=== PATIENT | female | born 1970 | race Caucasian/White ===

== ENCOUNTER 2018-05-03 01:37 | Outpatient (CLI) | payer OTHER, SELFPAY ==
--- NOTE | 2018-05-03 15:11 | DI.MAMMO_ITS ---
SYMPTOM/DIAGNOSIS: SCREENING, Z12.31 CORRECTED REPORT MAMMOGRAMS: Mammograms were interpreted according to the usual protocol including computer analysis with CAD system, tomosynthesis and C view imaging. Comparison is made with exams from [id number]. The breasts are composed of heterogeneously dense fibroglandular tissue, breast density, Category C. No suspicious masses or suspicious microcalcifications are seen. There has been no significant change. IMPRESSION: Category 1C, negative mammogram. Yearly screening mammography is recommended. [facility] ASSESSMENT OF FINDINGS: Negative. Category 1. Patient will receive a letter notifying them of these results. Bi-RADS category C. The breasts are heterogeneously dense, which may obscure small masses.
== END 2018-05-03 01:57 ==
PROVIDERS: Visit Provider Nurse Practitioner Family
DX: Z12.31 Encounter for screening mammogram for malignant neoplasm of breast (principal)
CPT/HCPCS: 77063; 77067

== ENCOUNTER 2019-06-24 01:11 | Outpatient (CLI) | payer OTHER, SELFPAY ==
--- NOTE | 2019-06-24 15:23 | DI.MAMMO_ITS ---
EXAM: MG MAMMO SCREENING CLINICAL HISTORY: screening. TECHNIQUE: Full field digital CC and MLO mammographic images were obtained with 3D tomosynthesis and utilizing computer aided detection (CAD). COMPARISON: [id number]. FINDINGS: Breast density: C Masses/Architectural Distortion: None seen. Microcalcifications: No suspicious pleomorphic-type calcifications are seen. Skin Thickening/Nipple Retraction: None. Axilla: Unremarkable. IMPRESSION: 1. BI-RADS category 1, negative. No significant interval change with no specific features of maligna ncy noted. 2. Unless there is more urgent need, screening mammography is recommended, as per [place] [employer] guidelines. BI-RADS Cat 1 - Negative Breast Density - Category C - Heterogeneously dense A negative radiographic report should not delay biopsy if a dominant or clinically suspicious mass is present. Up to ten percent of cancers are not identified on mammography. A negative report may reinforce clinical impression. Adenosis and dense breasts may obscure an underlying neoplasm. False positive reports average 6 to 10%. Patient will receive a letter notifying them of these results.
== END 2019-06-24 01:31 ==
PROVIDERS: Visit Provider Nurse Practitioner Family
DX: Z12.31 Encounter for screening mammogram for malignant neoplasm of breast (principal)
CPT/HCPCS: 77063; 77067

== ENCOUNTER 2020-05-17 10:55 | Outpatient (REF) | payer BC, SELFPAY ==
--- NOTE | 2020-05-17 09:15 | PAPFT_PTH ---
PATIENT: Lacie Godinez LOC: [facility] U#:[id number] AGE/SX: 49/F ROOM: RE05/17/[address]: WILLY Flores : 1970 BED: DIS: 05/17/2020 SPEC #: [id number] RECD: 05/17/20 12:46 STATUS: ANTOINE REAdrien #: [id number] TAVO: 05/17/20 09:[address]: Aria Kirk DEPT: [facility] Cytology RECD BY: Maggie Purvis Tissues: 1 - CX/ENDOCX FOR PAP SMEARS Procedures: PAP THIN PREP/UVM Screening HPV DNA PROBE Comments: [id number] ([place]COL[place])
== END 2020-05-17 11:15 ==
LOC: LBN 10:55
PROVIDERS: Visit Provider Nurse Practitioner Family
DX: Z12.4 Encounter for screening for malignant neoplasm of cervix (principal)
CPT/HCPCS: 88142; 87624

== ENCOUNTER 2020-07-22 00:56 | Outpatient (CLI) | payer BC, SELFPAY ==
--- NOTE | 2020-07-22 08:30 | DI.MAMMO_ITS ---
EXAM: MG MAMMO SCREENING CLINICAL HISTORY: screening. TECHNIQUE: Bilateral full field digital CC and MLO mammographic images were obtained with 3D tomosyn thesis and utilizing computer aided detection (CAD). COMPARISON: Prior mammograms dating back to 2010, the most recent being June 2019. FINDINGS: There are no new obvious spiculated masses nor malignant appearing microcalcification groups. There is no significant architectural distortion nor skin thickening-retraction. IMPRESSION: Dense bilateral fibroglandular tissue. No obvious radiographic evidence of malignancy. BI-RADS Category 1 - Negative Breast Density - Category C - Heterogeneously dense Breast density Category C or D implies that the patient has dense breast tissue. Dense breast tissue can make it harder to find cancer on a mammogram. Dense breast tissue is also associated with an incr eased risk of breast cancer. This information about the result of the mammogram report was provided to the patient to raise their awareness. Use this report when you speak with the patient about their risks for breast cancer, which includes their family history. At that time, you may recommend additional screening tests (Ultrasoun d or MRI) as these tests may add significant information. A negative radiographic report should not delay biopsy if a dominant or clinically suspicious mass is present. Up to ten percent of cancers are not identified on mammography. A negative report may reinforce clinical impression. Adenosis and dense breasts may obscure an underlying neoplasm. False positive reports average 6 to 10%. Patient will receive a letter notifying them of these results.
== END 2020-07-22 01:16 ==
PROVIDERS: PCP Family Medicine; Visit Provider Nurse Practitioner Family
DX: Z12.31 Encounter for screening mammogram for malignant neoplasm of breast (principal)
CPT/HCPCS: 77063; 77067

== ENCOUNTER 2021-07-26 01:08 | Outpatient (CLI) | payer OTHER, SELFPAY ==
--- NOTE | 2021-07-26 07:30 | DI.MAMMO_ITS ---
Exam(s) MAMMO SCREENING EXAM: MAMMO SCREENING CLINICAL HISTORY: screening TECHNIQUE: Mammograms were interpreted according to the usual protocol including computer analysis w [facility] CAD system, tomosynthesis and C-view imaging. COMPARISON: FINDINGS: The breasts are heterogeneously dense. No dominant mass is seen. There is a new grouping of poorly visualized microcalcifications in the upper outer quadrant of the r ight breast approximately 7 cm from the nipple seen on CC and MLO views. These appear to be associat ed with a new area of asymmetric density and there is possible architectural distortion in this area. These findings were not present on prior examinations including July 2020. No other significant change seen. IMPRESSION: Suspicious findings of new asymmetric density, microcalcifications, and possible architectural distor tion of upper outer quadrant of the right breast. Additional evaluation with magnification spot comp ression views and breast ultrasound recommended to evaluate the possibility of malignancy. BI-RADS Category 0 - Assessment Incomplete: Need additional imaging evaluation Breast Density - Category C - Heterogeneously dense
== END 2021-07-26 01:28 ==
PROVIDERS: PCP Family Medicine; Visit Provider Nurse Practitioner Family
DX: Z12.31 Encounter for screening mammogram for malignant neoplasm of breast (principal); R92.8 Other abnormal and inconclusive findings on diagnostic imaging of breast
CPT/HCPCS: 77063; 77067

== ENCOUNTER 2021-07-29 01:57 | Outpatient (CLI) | payer OTHER, SELFPAY ==
--- NOTE | 2021-07-29 | DI.US_ITS ---
Exam(s) MG MAMMO SCREEN CALL BACK UNI US BREAST RT COMPLETE EXAM: MG MAMMO SCREEN CALL BACK UNI - RIGHT AND COMPLETE RIGHT BREAST ULTRASOUND CLINICAL HISTORY: F/U MAMMO, ? NEW ASYMMETRIC DENSITY,NEW MICROCALCIFICATIONS,? ARCHITECTURAL. TECHNIQUE: Unilateral spot mammographic images obtained with BOTH 2D AND 3D tomosynthesisand jaeizi ng computer aided detection (CAD). . Complete RIGHT breast Ultrasound was also performed, including all 4 quadrants, the retroareolar santiago on, and the ipsilateral axilla. COMPARISON: Prior mammograms were reviewed. This additional imaging was performed due to findings described on the recent screening mammogram of 07/26/2021. FINDINGS: DIAGNOSTIC RIGHT BREAST MAMMOGRAM: Additional mammographic views performed todayreveals the microcalcifications to be suspicious and the re is suggestion associated mass on the spot 3D view. We then proceeded with ultrasound. COMPLETE RIGHT BREAST ULTRASOUND: Ultrasound performed today reveals a concerning irregular hypoechoic mass at the 9-10 o'clock positio n, approximately 5 cm from the nipple and corresponding to the finding on the mammogram. This exhibi ts decreased through transmission. This is suspicious for malignancy.. IMPRESSION: Findings at the 9-10 o'clock position of the right breast which are highly suspicious for malignancy. Biopsy is recommended. The patient was informed of these findings and recommendations prior to leaving the department today. Also called her provider with these findings on 07/29/2021. BI-RADS Category 4 - Suspicious Abnormality: Biopsy should be considered Breast Density - Category C - Heterogeneously dense Breast density Category C or D implies that the patient has dense breast tissue. Dense breast tissue can make it harder to find cancer on a mammogram. Dense breast tissue is also associated with an incr eased risk of breast cancer. This information about the result of the mammogram report was provided to the patient to raise their awareness. Use this report when you speak with the patient about their risks for breast cancer, which includes their family history. At that time, you may recommend additional screening tests (Ultrasoun d or MRI) as these tests may add significant information. A negative radiographic report should not delay biopsy if a dominant or clinically suspicious mass is present. Up to ten percent of cancers are not identified on mammography. A negative report may reinforce clinical impression. Adenosis and dense breasts may obscure an underlying neoplasm. False positive reports average 6 to 10%. Patient will receive a letter notifying them of these results.
== END 2021-07-29 02:17 ==
PROVIDERS: PCP Family Medicine; Visit Provider Nurse Practitioner Family
DX: R92.8 Other abnormal and inconclusive findings on diagnostic imaging of breast (principal)
CPT/HCPCS: 76642; 77063; 77067

== ENCOUNTER 2021-10-31 10:40 | Outpatient (REF) | payer OTHER, SELFPAY ==
[2021-10-31 11:06] LABS: HCG Qual (Urine) Negative
== END 2021-10-31 10:41 | disposition home or self-care (01) ==
LOC: LBN 10:40
PROVIDERS: PCP Family Medicine; Visit Provider Radiology Radiation Oncology
DX: C50.411 Malignant neoplasm of upper-outer quadrant of right female breast (principal); Z17.0 Estrogen receptor positive status [ER+]; Z32.00 Encounter for pregnancy test, result unknown
CPT/HCPCS: 81025

== ENCOUNTER 2021-12-22 13:07 | Outpatient (CLI) | payer OTHER, SELFPAY ==
[2021-12-22 12:59] LABS: Absolute Basophil Count 0.11 10^3/uL (0.0-0.2); Absolute Eosinophil Count 0.05 10^3/uL (0.0-0.7); Absolute Lymphocyte Count 1.68 10^3/uL (1.2-3.4); Absolute Monocyte Count 0.82 10^3/uL (0.1-0.8); Absolute Neutrophil Count 5.21 10^3/uL (1.2-6.7); Basophils % 1.3; Eosinophils % 0.6; HCT 41.6 % (36.0-46.0); HGB 13.4 g/dL (11.2-15.7); Lymphocytes % 20.1; MCH 29.9 pg (27.0-33.0); MCHC 32.2 % (32.0-36.0); MCV 93 fL (80-95); MPV 10.2 fL (8.0-11.0); Monocytes % 9.8; Neutrophils % 62.2; Platelet Count 155 10^3/uL (130-400); RBC 4.48 10^6/uL (3.93-5.22); RDW 12.1 % (11.7-14.6); RDW-SD 41.1 fL; WBC 8.37 10^3/uL (4.4-10.8)
[2021-12-22 13:12] LABS: Diff Comment Diff Reviewed; RBC Morphology Normal
[2021-12-22 13:23] LABS: ALT 30 U/L (14-59); AST 18 U/L (15-37); Albumin 3.7 g/dL (3.4-5.0); Alkaline Phosphatase 89 U/L (46-116); Anion Gap 7.7 mmol/L (3-11); BUN 19 mg/dL (7-18); Bilirubin, Total 0.1 mg/dL (0.2-1.0); CO2 29.3 mmol/L (21.0-32.0); CREATININE 0.8 mg/dL (0.55-1.02); Calcium 9.1 mg/dL (8.5-10.1); Chloride 104 mmol/L (98-107); Glucose 104 mg/dL (74-106); Potassium 3.8 mmol/L (3.5-5.1); Sodium 141 mmol/L (136-145); Total Protein 7.1 g/dL (6.4-8.2)
== END 2021-12-22 13:08 | disposition home or self-care (01) ==
LOC: LBO 13:09
PROVIDERS: PCP Family Medicine
DX: C50.411 Malignant neoplasm of upper-outer quadrant of right female breast (principal); Z17.0 Estrogen receptor positive status [ER+]
CPT/HCPCS: 36415; 80053; 85025

== ENCOUNTER 2022-01-19 02:50 | Outpatient (RCR) | payer OTHER, SELFPAY ==
[2022-01-19] MEDS: Normal Saline Flush 10 ML SYR IVP (08:20)
[2022-01-19 08:51] LABS: Abs Immature Grans 1.21 10^3/uL (0.0-0.06); MCH 30.7 pg (27.0-33.0); MCHC 33.3 % (32.0-36.0); MCV 92 fL (80-95); MPV 10.1 fL (8.0-11.0); Platelet Count 155 10^3/uL (130-400); RBC 4.24 10^6/uL (3.93-5.22); RDW 14.6 % (11.7-14.6); WBC 10.79 10^3/uL (4.4-10.8)
[2022-01-19 09:07] LABS: ALT 25 U/L (14-59); AST 15 U/L (15-37); Albumin 3.7 g/dL (3.4-5.0); Alkaline Phosphatase 94 U/L (46-116); Anion Gap 6.6 mmol/L (3-11); BUN 18 mg/dL (7-18); Bilirubin, Total 0.2 mg/dL (0.2-1.0); CO2 29.4 mmol/L (21.0-32.0); CREATININE 0.7 mg/dL (0.55-1.02); Calcium 9.2 mg/dL (8.5-10.1); Chloride 105 mmol/L (98-107); Glucose 96 mg/dL (74-106); Potassium 3.7 mmol/L (3.5-5.1); Sodium 141 mmol/L (136-145); Total Protein 6.8 g/dL (6.4-8.2)
[2022-01-19 09:23] LABS: Absolute Lymphocyte Count 2.27 10^3/uL (1.2-3.4); Absolute Neutrophil Count 7.23 10^3/uL (1.2-6.7); Atypical Lymphocytes % 7; Bands % 1
[2022-01-19 09:24] LABS: Absolute Monocyte Count 0.97 10^3/uL (0.1-0.8); Diff Comment Manual Differential; Myelocytes % 1; Other Cells % 2; RBC Morphology Normal
== END 2022-02-12 23:59 | disposition home or self-care (01) ==
LOC: INF 02:50
PROVIDERS: PCP Family Medicine; Visit Provider Internal Medicine Hematology & Oncology
DX: C50.411 Malignant neoplasm of upper-outer quadrant of right female breast (principal); Z17.0 Estrogen receptor positive status [ER+]; Z45.2 Encounter for adjustment and management of vascular access device
CPT/HCPCS: 36591; 80053; 85025

== ENCOUNTER 2022-02-16 02:41 | Outpatient (RCR) | payer OTHER, SELFPAY ==
[2022-02-16] MEDS: Normal Saline Flush 10 ML SYR IVP (08:05)
[2022-02-16 08:22] LABS: Abs Immature Grans 0.01 10^3/uL (0.0-0.06); Absolute Basophil Count 0.05 10^3/uL (0.0-0.2); Absolute Eosinophil Count 0.04 10^3/uL (0.0-0.7); Absolute Lymphocyte Count 0.68 10^3/uL (1.2-3.4); Absolute Monocyte Count 0.56 10^3/uL (0.1-0.8); Absolute Neutrophil Count 1.47 10^3/uL (1.2-6.7); Basophils % 1.8; Eosinophils % 1.4; HCT 35.7 % (36.0-46.0); HGB 11.8 g/dL (11.2-15.7); Immature Grans % 0.4; Lymphocytes % 24.2; MCH 31.4 pg (27.0-33.0); MCHC 33.1 % (32.0-36.0); MCV 95 fL (80-95); MPV 9.9 fL (8.0-11.0); Monocytes % 19.9; Neutrophils % 52.3; Platelet Count 201 10^3/uL (130-400); RBC 3.76 10^6/uL (3.93-5.22); RDW-SD 55.8 fL; WBC 2.81 10^3/uL (4.4-10.8)
[2022-02-16 08:34] LABS: ALT 48 U/L (14-59); AST 20 U/L (15-37); Albumin 3.7 g/dL (3.4-5.0); Alkaline Phosphatase 68 U/L (46-116); Anion Gap 4.4 mmol/L (3-11); BUN 18 mg/dL (7-18); Bilirubin, Total 0.3 mg/dL (0.2-1.0); CO2 29.6 mmol/L (21.0-32.0); CREATININE 0.7 mg/dL (0.55-1.02); Calcium 8.9 mg/dL (8.5-10.1); Chloride 106 mmol/L (98-107); Glucose 97 mg/dL (74-106); Potassium 3.7 mmol/L (3.5-5.1); Sodium 140 mmol/L (136-145); Total Protein 6.7 g/dL (6.4-8.2)
== END 2022-03-15 23:59 | disposition home or self-care (01) ==
LOC: INF 02:41
PROVIDERS: PCP Family Medicine; Visit Provider Internal Medicine Hematology & Oncology
DX: C50.411 Malignant neoplasm of upper-outer quadrant of right female breast (principal); Z17.0 Estrogen receptor positive status [ER+]; Z45.2 Encounter for adjustment and management of vascular access device
CPT/HCPCS: 36591; 80053; 85025

== ENCOUNTER 2022-03-16 04:33 | Outpatient (RCR) | payer OTHER, SELFPAY ==
[2022-03-16] MEDS: Normal Saline Flush 10 ML SYR IVP (08:23)
[2022-03-16 08:35] LABS: Absolute Basophil Count 0.03 10^3/uL (0.0-0.2); Absolute Eosinophil Count 0.11 10^3/uL (0.0-0.7); Absolute Lymphocyte Count 0.67 10^3/uL (1.2-3.4); Absolute Monocyte Count 0.33 10^3/uL (0.1-0.8); Absolute Neutrophil Count 1.17 10^3/uL (1.2-6.7); Basophils % 1.3; Eosinophils % 4.8; HCT 38.2 % (36.0-46.0); HGB 12.6 g/dL (11.2-15.7); MCH 31.1 pg (27.0-33.0); MCV 94 fL (80-95); Monocytes % 14.3; Neutrophils % 50.6; Platelet Count 210 10^3/uL (130-400); RBC 4.05 10^6/uL (3.93-5.22); RDW 13.2 % (11.7-14.6); RDW-SD 46.4 fL; WBC 2.31 10^3/uL (4.4-10.8)
[2022-03-16 08:55] LABS: ALT 34 U/L (14-59); AST 21 U/L (15-37); Albumin 3.9 g/dL (3.4-5.0); Alkaline Phosphatase 68 U/L (46-116); Anion Gap 5.7 mmol/L (3-11); BUN 16 mg/dL (7-18); Bilirubin, Total 0.4 mg/dL (0.2-1.0); CO2 29.3 mmol/L (21.0-32.0); CREATININE 0.7 mg/dL (0.55-1.02); Calcium 9.1 mg/dL (8.5-10.1); Chloride 106 mmol/L (98-107); Glucose 94 mg/dL (74-106); Potassium 3.7 mmol/L (3.5-5.1); Sodium 141 mmol/L (136-145); Total Protein 7.1 g/dL (6.4-8.2)
== END 2022-04-14 23:59 | disposition home or self-care (01) ==
LOC: INF 04:33
PROVIDERS: PCP Family Medicine; Visit Provider Internal Medicine Hematology & Oncology
DX: Z45.2 Encounter for adjustment and management of vascular access device (principal); C50.411 Malignant neoplasm of upper-outer quadrant of right female breast; Z17.0 Estrogen receptor positive status [ER+]
CPT/HCPCS: 36591; 80053; 85025

== ENCOUNTER → 2022-06-09 00:28 | Outpatient (CLI) | payer OTHER, SELFPAY ==
--- NOTE | 2022-06-09 13:29 | DI.DEXA_ITS ---
Exam(s) XR DEXA BONE DENSITY W/WO LILLIE EXAM: XR DEXA BONE DENSITY W/WO LILLIE CLINICAL HISTORY: TO START AL, BREAST CANCER, C50.625 TECHNIQUE: COMPARISON: No exams were available for comparison FINDINGS: DEXA scan was performed according to the usual protocol. Please see the accompanying data sheets. Left hip scanning shows T-score 0.8 with left femoral neck T-score 0.3. Lumbar spine scanning shows T-score -2.2. Left forearm scanning shows T-score 1.4. IMPRESSION: Measurements are consistent with osteopenia according to the WHO criteria. Lateral vertebral scanogram shows no evidence of a vertebral compression fracture. RADIATION DOSE DELIVERED: Total DLP
== END ==
PROVIDERS: PCP Family Medicine; Visit Provider Internal Medicine Medical Oncology
DX: Z13.820 Encounter for screening for osteoporosis (principal); M85.89 Other specified disorders of bone density and structure, multiple sites
CPT/HCPCS: 77080

== ENCOUNTER 2022-06-21 04:04 | Outpatient (CLI) | payer OTHER, SELFPAY ==
[2022-06-21 15:39] LABS: Vitamin D 25 Total 30.2 ng/mL (30-100)
[2022-06-21 17:03] LABS: Calcium 9.6 mg/dL (8.5-10.1)
[2022-06-23 11:22] LABS: Estradiol, Mass Spectrometry <10 pg/mL; Estrone 17 pg/mL
== END 2022-06-21 04:05 | disposition home or self-care (01) ==
LOC: LBO 04:04
PROVIDERS: PCP Family Medicine; Visit Provider Nurse Practitioner Women's Health
DX: C50.911 Malignant neoplasm of unspecified site of right female breast (principal); M85.88 Other specified disorders of bone density and structure, other site
CPT/HCPCS: 36415; 82306; 82310; 82670; 82679

== ENCOUNTER 2023-06-14 12:03 | Outpatient (REF) | payer BC, SELFPAY ==
--- NOTE | 2023-06-14 11:50 | PAPFT_PTH ---
PATIENT: Lacie Godinez LOC: [facility] U#:[id number] AGE/SX: 52/F ROOM: RE06/14/[address]: Lydia Avila MD : 1970 BED: DIS: 06/14/2023 SPEC #: [id number] RECD: 06/14/23 17:34 STATUS: ANTOINE REQ #: [id number] TAVO: 06/14/23 11:[address]: Lydia Avila DEPT: [facility] Cytology RECD BY: Beth Clemente ENTERED: 06/14/23 17:35 SP TYPE: PAPFT OTHR DR: Ashwini Yancey Tissues: 1 - CX/ENDOCX FOR PAP SMEARS Procedures: PAP THIN PREP/UVM Screening HPV DNA PROBE Comments: [id number]
== END 2023-06-14 12:04 | disposition home or self-care (01) ==
LOC: LBN 12:03
PROVIDERS: PCP Family Medicine; Visit Provider Obstetrics & Gynecology
DX: Z12.4 Encounter for screening for malignant neoplasm of cervix (principal)
CPT/HCPCS: 88142; 87624

== ENCOUNTER 2024-05-12 11:49 | Outpatient (CLI) | payer BC, SELFPAY ==
--- NOTE | 2024-05-12 10:00 | DI.RAD_ITS ---
Exam(s) XR WRIST RT COMPLETE EXAM: XR WRIST RT COMPLETE CLINICAL HISTORY: right wrist pain. TECHNIQUE: 2D digital imaging was performed. Three views. COMPARISON: No exams were available for comparison FINDINGS: BONES: No acute fracture is present. No bony destructive lesion is seen. JOINTS: The carpal bones are normally aligned. Mild widening of the distal radial ulnar joint. SOFT TISSUE: Focal area swelling seen is the dorsal aspect of the wrist. No associated calcification s. IMPRESSION: Focal posterior soft tissue swelling could indicate synovial cyst ganglion. DATA REPOSITORY: RADIATION DOSE DELIVERED:
== END 2024-05-12 11:50 | disposition home or self-care (01) ==
LOC: DIORS 11:50
PROVIDERS: PCP Family Medicine; Visit Provider Physician Assistant
DX: M67.431 Ganglion, right wrist (principal)
CPT/HCPCS: 73110

== ENCOUNTER 2024-06-19 01:50 | Outpatient (CLI) | payer BC, SELFPAY ==
--- NOTE | 2024-06-19 | DI.DEXA_ITS ---
Exam(s) XR DEXA BONE DENSITY W/WO LILLIE EXAM: XR DEXA BONE DENSITY W/WO LILLIE CLINICAL HISTORY: Malignant neoplasm of rt breast in female, estrogen receptor +, C50.911, TECHNIQUE: COMPARISON: CR XR DEXA BONE DENSITY W/WO LILLIE from 06/09/2022 FINDINGS: Lateral Spine Image: Unremarkable. No compression deformities identified. Left hip: Total T-Score: 1.4. This compares to 0.8 on the prior examination. Total Z-Score: 1.9 T- and Z-scores: Within normal limits. Lumbar Spine: Total T-Score: -1.8. This compares to -2.2 on the prior examination. Total Z-Score: -0.9 T- and Z-scores: Findings are consistent with osteopenia. IMPRESSION: No evidence of osteoporosis.
== END 2024-06-19 02:10 ==
LOC: DI 01:51
PROVIDERS: PCP Family Medicine; Visit Provider Registered Nurse School
DX: C50.911 Malignant neoplasm of unspecified site of right female breast (principal); Z17.0 Estrogen receptor positive status [ER+]
CPT/HCPCS: 77080

== ENCOUNTER 2024-06-24 10:30 | Outpatient (REF) | payer BC, SELFPAY ==
--- NOTE | 2024-06-24 10:30 | PAPFT_PTH ---
PATIENT: Lacie Godinez LOC: [facility] U#:[id number] AGE/SX: 53/F ROOM: RE06/24/[address]: Lydia Avila MD : 1970 BED: DIS: 06/24/2024 SPEC #: [id number] RECD: 06/24/24 13:16 STATUS: ANTOINE REQ #: [id number] TAVO: 06/24/24 10:[address]: Lydia Avila DEPT: [facility] Cytology RECD BY: Beth Clemente ENTERED: 06/24/24 13:16 SP TYPE: PAPFT OTHR DR: Ashwini Yancey Tissues: 1 - CX/ENDOCX FOR PAP SMEARS Procedures: PAP THIN PREP/UVM Screening HPV DNA PROBE Comments: [id number] HPV 16 & 18/45)
== END 2024-06-24 10:31 | disposition home or self-care (01) ==
LOC: LBN 10:30
PROVIDERS: PCP Family Medicine; Visit Provider Obstetrics & Gynecology
DX: Z01.419 Encounter for gynecological examination (general) (routine) without abnormal findings (principal)
CPT/HCPCS: 88142; 87624

== ENCOUNTER 2024-07-02 09:54 | Day surgery (SDC) | payer BC, SELFPAY ==
--- NOTE | 2024-07-02 09:13 | PDOC.DSDIS_ITS ---
Date of service: 07/02/24 Discharge Plan Disposition Patient Disposition: Home Condition: Good Discharge Details Reason For Visit: Excision cyst R wrist Attending Provider: Corbin Fu Primary Care Provider: Ashwini Yancey Home Meds and New Rx's Prescriptions: New acetaminophen 500 mg tablet 1,000 mg PO TID Qty: 90 0RF ibuprofen 600 mg tablet 600 mg PO TID PRN (Reason: pain) Qty: 90 0RF Continued alendronate 70 mg tablet 70 mg PO QWEEK calcium carbonate-vitamin D3 500 mg-10 mcg (400 unit) tablet 1 tab PO DAILY anastrozole 1 mg tablet 1 mg PO DAILY Discharge Instructions Additional Instructions: Wrist Cyst Discharge Instructions Activity: You should keep the hand elevated as much as possible for the first few days. You may use the other fingers as tolerated but avoid trying to do too much too soon. You may perform light activities as tolerated but focus initially on motion rather than activities. Dressing/Cast: Your initial dressing should stay on for at least 2 days. There is a Mepilex dressing underneath this Star wrap which may be left in place for up to 1 week. You may shower and bathe regularly after 2 days but should avoid getting the Mepilex dressing soaked. He may consider keeping the wrist wrapped in an Star wrap for support and comfort. A wrist brace may be utilized as needed for comfort. Medications: - You should take Tylenol and Ibuprofen for pain control. - You may apply ice over the wrist. Follow-up: 7-10 days Referrals: Corbin Fu MD [ [facility]FF PHYSICIAN] - Activity:: Elevate Remove Dressings/Wound Care:: 48 hours Shower/Bathe:: 48 hours Diet:: As Tolerated Discharge Orders Discharge Orders: Discharge Order (Routine); Ordered 07/02/24 Ordered By: Otoniel Bower DS: Diagnosis Discharge Diagnosis (1) Ganglion cyst of dorsum of right wrist: Status: Acute
[2024-07-02 09:57] VITALS: BP 108/73; PULSE 70; RESP 18; TEMP 36.4; O2SAT 100
--- NOTE | 2024-07-02 10:24 | W.ANESPRE ---
General Info Date of Service Date Performed: 07/02/24 Height: 5 ft 9 in Weight: 77 kg Body Mass Index (BMI): 25.0 Surgical Procedure: Operation Date: 07/02/24 11:25 Proposed Procedure Side Surgeon p Dorsal Ganglion Cyst Excision Right Corbin Fu MD Meds Allergies and Home Medications Allergies Allergy/AdvReac Type Severity Reaction Status Date / Time oxycodone HCl (From Percocet) AdvReac VOMITING Verified 07/02/24 10:08 Home Medication ?Medication ?Instructions ?Recorded alendronate 70 mg tablet 70 mg PO QWEEK 04/24/23 calcium 500 mg (as 1 tab PO DAILY 04/24/23 carbonate)-vitamin D3 10 mcg (400 unit) tablet anastrozole 1 mg tablet 1 mg PO DAILY 07/01/24 acetaminophen 500 mg tablet 1,000 mg (2 x 500 mg) PO TID #90 07/02/24 tabs ibuprofen 600 mg tablet 600 mg PO TID PRN pain #90 tabs 07/02/24 Current Visit Medications: Current Medications Generic Name Dose Route Start Last Admin Trade Name Carterq PRN Reason Stop Dose Admin Acetaminophen 650 mg 07/02/24 09:11 Acetaminophen 325 Mg Tab PO 08/01/24 09:10 Q4H PRN PRN Cefazolin Sodium/Dextrose 2 gm in 50 mls @ 100 mls/hr 07/02/24 06:00 Ancef Duplex IVPB 07/02/24 23:59 PREOP EDIE Sodium Chloride 1,000 mls @ 80 mls/hr 07/02/24 06:45 Saline 1000ml Bag IV 08/01/24 06:44 INFUSION EDIE IV Miscellaneous Supplies 1 each 07/02/24 06:00 Iv Access IV 07/02/24 23:59 DIRECTED EDIE Sodium Chloride 0 ml 07/02/24 06:00 Normal Saline Flush 10 Ml Syr IV 07/02/24 23:59 PRN PRN Sodium Chloride 0 ml 07/02/24 06:00 Normal Saline 10 Ml Vial IJ 07/02/24 23:59 DIRECTED PRN Sterile Water 0 ml 07/02/24 06:00 Water,Injection,Sterile 10 Ml Vial IJ 07/02/24 23:59 DIRECTED PRN PFSH Active Problems Active Problems: Problem Status Onset Code Ganglion cyst of dorsum of right wrist Acute M67.431 Osteopenia Acute M85.80 Breast cancer, right breast Acute C50.911 Medical History Medical History Comments:: Per pt. states her parents had Polio had issues with anesthesia. Surgical History Surgical History H/O lymph node excision Lymphedema risk History of removal of Port-a-Cath History of partial mastectomy of right breast September 2021 Dilation and curettage ? D&C following 2003 Tobacco Smoking/Tobacco Use Status: Never Passive smoking exposure: No Alcohol Alcohol Intake: never Substance Use Substance use: Never Substance use type: does not use Prental History History 3 Para Hx # Term Pregnancies 2 Multiple births Hx # Pregnancies Ectopic pregnancies AB induced Hx Number of Living Children AB spontaneous Vital Signs and Lab Results Vital Signs Most Recent Vital Signs in EMR: Most Recent Vital Signs Temp Pulse Resp BP Pulse Ox 36.4 C L 70 18 108/73 100 07/02/24 09:57 07/02/24 09:57 07/02/24 09:57 07/02/24 09:57 07/02/24 09:57 Lab Results Blood Type / Crossmatch: No Data to Display Complete Blood Count: No Data to Display Complete Metabolic Panel: No Data to Display Liver Function Panel: No Data to Display Coagulation Panel: No Data to Display Cardiac Panel: No Data to Display Arterial Blood Gas: No Data to Display Venous Blood Gas: No Data to Display Pancreas Panel: No Data to Display Thyroid Panel: No Data to Display Infectious Disease: No Data to Display Blood Cultures: No Data to Display Toxicology Panel: No Data to Display Panel: No Data to Display Anesthesia Assessment and Plan Anesthesia History Personal History: No History of Anesthesia Complications Family History: Other Exercise Tolerance Exercise Tolerance: Metabolic Equivalents>4 Cardiac & Pulmonary Exam Cardiac Exam: Normal S1/S2 Heart Sounds Pulmonary Exam: Clear Bilateral Breath Sounds Implantable Cardiac Device Does patient have a Pacemaker or an ICD?: No Airway Exam Known Difficult Airway: No Mallampati Class: 4 Mouth Opening: Narrow (< 3cm) Thyromental Distance: Less than 3 cm Neck Range of Motion: Full ROM Neck Circumference: Normal Teeth Condition: Normal Dentition ASA Classification ASA Score: ASA 2 Emergency Case?: No NPO Status NPO Status: NPO Clears >2 hours, Solids >8 hours Status Status: Negative HCG Anesthesia Plan Resuscitation Status: Full Code Anesthesia Technique: MAC Anesthesia Airway Planned: Natural Airway Monitors Used: Standard Monitors Preoperative Comments:: 53 yo female for cyst removal. Sig PMHx: mastectomy/breast CA. never smoker. previous anes: - cyst, fent/midaz, prop, LMA, no issues.
[2024-07-02 10:27] VITALS: BMI 25.0
[2024-07-02] MEDS: Normal Saline 1,000 ML 80 ML IV (10:41)
--- NOTE | 2024-07-02 11:21 | W.PREOPHP ---
Assessment and Plan Assessment and plan (1) Ganglion cyst of dorsum of right wrist: Status: Acute Assessment and plan: Lacie is a 53-year-old female with a dorsal wrist cyst about the right wrist. Given the size and discomfort caused by the cyst I have offered excision. I reviewed the technical details of the surgery. I discussed the risk to include bleeding, infection, pain, stiffness, damage nerves and vessels, damage to muscle and tendons, need for repeat procedures, recurrence. Despite these risk, she elects to proceed History of Present Illness History of Present Illness Chief Complaint: Right Dorsal Wrist Ganglion Cyst Narrative: Lacie is a 53-year-old female who have seen previously for dorsal wrist cyst. She has had this before and it has recurred. Please see the previous office note for complete detailed history. It has not gone down in size and continues to cause her pain and dysfunction. She denies any other changes to her health. She has had a lumpectomy with chemo and radiation in the recent years which has been deemed stable and clear of pathology at this time. No ongoing chest pain or shortness of breath. Review of Systems All systems reviewed & are unremarkable except as noted in HPI and below PFSH All Active Problems Ganglion cyst of dorsum of right wrist (Acute) Status post dorsal cyst excision by Dr. Polk around 2013 Osteopenia (Acute) DEXA on 06/09/22 Breast cancer, right breast (Acute) Lumpectomy 10/07/21 - margins clear, 1 node +. Stage 2. Chemo and radiation done Tamoxifen use Surgical History H/O lymph node excision Lymphedema risk History of removal of Port-a-Cath History of partial mastectomy of right breast September 2021 Dilation and curettage ? D&C following SAB 2003 Family History Mother Polio Father Polio Social History Smoking/Tobacco Use Status: Never Smoking risk assessment performed?: Yes Alcohol Intake: never Drug use: Never Substance use type: does not use Household members: none Housing: house Number of Children: 2 current occupation: Community health worker Pets and animals: Yes Pets and animals: cat(s) and dog(s) Sexually active: No (divoced 2022) Do you think of yourself as: straight/heterosexual Current gender identity: female What is your relationship status?: Panel score (0-1 are the most socially isolated patients): 0 Seatbelt use: always Do you feel safe at home: Yes Do you feel safe in your relationship?: Yes Female Reproductive History Menstrual control method: pills History History 3 Para Hx # Term Pregnancies 2 Multiple births Hx # Pregnancies Ectopic pregnancies AB induced Hx Number of Living Children AB spontaneous Meds Allergies and Home Medications Allergies Allergy/AdvReac Type Severity Reaction Status Date / Time oxycodone HCl (From Percocet) AdvReac VOMITING Verified 07/02/24 10:08 Home Medications ?Medication ?Instructions ?Recorded ?Confirmed ?Type alendronate 70 mg tablet 70 mg PO QWEEK 04/24/23 07/02/24 History calcium 500 mg (as 1 tab PO DAILY 04/24/23 07/02/24 History carbonate)-vitamin D3 10 mcg (400 unit) tablet anastrozole 1 mg tablet 1 mg PO DAILY 07/01/24 07/02/24 History acetaminophen 500 mg tablet 1,000 mg (2 x 500 mg) PO TID #90 07/02/24 Rx tabs ibuprofen 600 mg tablet 600 mg PO TID PRN pain #90 tabs 07/02/24 Rx Exam Const General: cooperative, healthy appearing, comfortable and no acute distress Resp Auscultation: clear to auscultation bilaterally Cardio Rate: regular rate Rhythm: regular rhythm Results Last Vital Signs Temp 36.4 C L 07/02/24 09:57 Pulse 70 07/02/24 09:57 Resp 18 07/02/24 09:57 BP 108/73 07/02/24 09:57 Pulse Ox 100 07/02/24 09:57
[2024-07-02] MEDS: ceFAZolin 2 GM/50 ML BAG IVPB (11:30)
[2024-07-02] MEDS: Lidocaine 1% Multi-Dose W/EPI 1/100,000 50 ML VIAL (11:31)
[2024-07-02] MEDS: Sodium Bicarbonate 50 MEQ/50 ML VIAL (11:31)
[2024-07-02 12:06] VITALS: BP 111/57; PULSE 74; RESP 16; TEMP 35.7; O2SAT 98
--- NOTE | 2024-07-02 12:11 | W.ANESPOSTOP ---
Postoperative Evaluation Date, Time and Location Date Performed: 07/02/24 Time Performed: 12:12 Patient Location: Day Surgery Unit Vital Signs Most Recent Imported Vital Signs: Most Recent Vital Signs Temp Pulse Resp BP Pulse Ox 35.7 C L 74 16 111/57 L 98 07/02/24 12:06 07/02/24 12:06 07/02/24 12:06 07/02/24 12:06 07/02/24 12:06 Pain Score Most Recent Pain Score: Most Recent Pain Score Pain Level 0 07/02/24 12:06 Assessment Mental Status: Awake (Alert & Oriented to Patient Baseline) Airway and Respiratory Function: Patent airway with normal (patient baseline) respiratory exam Cardiovascular Function: Hemodynamically Stable Hydration Status: Adequately Hydrated Nausea & Vomiting: No Nausea or Vomiting Pain: Pain is tolerable per patient Peripheral Nerve Block: Patient did not receive a nerve block
--- NOTE | 2024-07-02 12:38 | ROE_ITS ---
Operative Note Operative Note PRE-OP DIAGNOSIS: Right Dorsawl Wrist Ganglion Cyst POST-OP DIAGNOSIS: same PROCEDURE: Excision of dorsal wrist ganglion cyst - RIGHT wrist SURGEON: Corbin Fu ANESTHESIA TYPE: General:No Airway Refer to Anesthesia Record ESTIMATED BLOOD LOSS: 5 PATHOLOGY: none sent COMPLICATIONS: None Patient was transported to: PACU Patient's condition: stable Indications: Lacie is a 53 year old female who I have seen for a dorsal wrist ganglion cyst. It has continued to be bothersome despite some conservative options. Its size and interference with activities continues to cause problems. Therefore, I offered excision of the wrist cyst. I discussed the risks to include bleeding, infection, pain, stiffness, damage to nerve and vessels, recurrence. Despite these risks, she elects to proceed. Findings: There is a large dorsal wrist cyst which extended to the dorsal wrist capsule but also has significant effusion to the surrounding extensor tendons. Procedure Description: Lacie was greeted in the preoperative holding area. Identity was confirmed and the correct site was identified and marked. Consent was reviewed the patient and signed. History and physical was updated. The patient was trasnferred to the operating room and placed in the supine position. All bony prominences were well-padded. No tourniquet was utilized. The arm was prepped with ChloraPrep and draped in a standard fashion. The surgical site was marked on the skin and injected with 1% lidocaine with e pinephrine buffered with sodium bicarbonate. The skin was incised sharply. Deeper dissection was carried out with tenotomy scissors and careful attention to vascular branches in this area which were mobilized out of the way. The mass was easily identifiable. The extensor retinaculum was incised and the mass push through the space. It was a obvious ganglion cyst the cyst was penetrated and the fluid was drained. The cyst was then followed down towards the wrist capsule however, there was significant adhesion to the surrounding fourth compartment extensor tendons. Extensive synovitis was seen adjacent to his tendons which was dissected directly off the tendons. This was taken along with the cyst capsule. The cyst capsule was followed back to the dorsal wrist joint. There was a smooth entry into the joint in this region. I used a rongeur to remove this tissue and some of the capsule from the area. There is some inflammatory tissue seen adjacent to the tendons more proximal but this did not appear to be pathologic nor connected with the cyst. Further inspection of the primary area was once again taken. There is no cystic remnants. The wound was then thoroughly irrigated. There is no significant bleeding identified. The extensor retinaculum was reapproximated with a 3-0 Vicryl. The skin was closed with a running 4-0 Monocryl followed by skin glue. Mepilex silver dressing was applied followed by gauze and Star wrap. At the end the case all counts were correct. The patient was awakened from anesthesia and taken to the [facility] in stable condition. There were no noted complications. Date of Procedure: 07/02/24
[2024-07-02 12:46] VITALS: BP 101/57; PULSE 73; RESP 16; TEMP 36.3; O2SAT 97
== END 2024-07-02 13:00 | disposition home or self-care (01) ==
LOC: SUR 09:54
PROVIDERS: PCP Family Medicine; Visit Provider Student in an Organized Health Care Education/Training Program
PROC: (CPT 25111; principal; 2024-07-02 11:15)
DX: M67.431 Ganglion, right wrist (principal)
CPT/HCPCS: 25111; J0690; J2004; J2250; J2405; J2704; J3010

== ENCOUNTER 2025-07-02 11:17 | Outpatient (REF) | payer BC, SELFPAY ==
--- NOTE | 2025-07-02 10:00 | PAPFT_PTH ---
PATIENT: Lacie Godinez LOC: [facility] U#:[id number] AGE/SX: 54/F ROOM: RE07/02/[address]: Lydia Avila MD : 1970 BED: DIS: 07/02/2025 SPEC #: [id number] RECD: 07/02/25 13:27 STATUS: ANTOINE REQ #: [id number] TAVO: 07/02/25 10:[address]: Lydia Avila DEPT: [facility] Cytology RECD BY: Beth Clemente ENTERED: 07/02/25 13:27 SP TYPE: PAPFT OTHR DR: Ashwini Yancey Tissues: 1 - CX/ENDOCX FOR PAP SMEARS Procedures: PAP THIN PREP/[facility] Screening HPV DNA PROBE Comments: [id number] (HPV 16 & 18/45)
== END 2025-07-02 11:18 | disposition home or self-care (01) ==
LOC: LBN 11:17
PROVIDERS: PCP Family Medicine; Visit Provider Obstetrics & Gynecology
DX: Z12.4 Encounter for screening for malignant neoplasm of cervix (principal)
CPT/HCPCS: 88142; 87624